=== PATIENT | female | born 1950 | race Caucasian/White ===

== ENCOUNTER → 2025-08-16 15:43 | Outpatient (REF) | payer MEDICARE, SELFPAY | LOC: PAVMRI 15:43 | PROVIDERS: ATTENDING PHYSICIAN Physician Assistant; FAMILY PHYSICIAN Family Medicine | DX: M54.16 Radiculopathy, lumbar region (principal) | CPT/HCPCS: 72148 ==

== ENCOUNTER → 2025-09-11 09:42 | Outpatient (REF) | payer MEDICARE, SELFPAY | LOC: EMG 09:42 | PROVIDERS: ATTENDING PHYSICIAN Physical Medicine & Rehabilitation; FAMILY PHYSICIAN Family Medicine | DX: M54.16 Radiculopathy, lumbar region (principal); R20.2 Paresthesia of skin; M48.061 Spinal stenosis, lumbar region without neurogenic claudication; R20.0 Anesthesia of skin | CPT/HCPCS: 95886; 95911 ==